=== PATIENT | female | born 1980 | race Caucasian/White ===

== ENCOUNTER 2020-03-29 12:10 | Inpatient (IN) | payer OTHER ==
[2020-03-29] MEDS: ELECTROLYTE-148 SOLN 1,000 ML IV SCH (13:50)
[2020-03-29] MEDS ORDERED: AMPICILLIN SODIUM 2 GM VIAL ONE (13:52)
[2020-03-29] MEDS ORDERED: AMPICILLIN - 2 GM in SODIUM CHLORIDE 100 ML IVPB ONE (14:00)
[2020-03-29] MEDS ORDERED: DINOPROSTONE 10 MG VAGINAL SUPPOSITORY VG ONE (14:45)
--- NOTE | 2020-03-29 15:04 | HP ---
Past Medical History - Primary Care Physician PCP:: James Rene - Admission Chief Complaint: Leakage of fluid per vagina History of Present Illness: 39 yo , MAIK 04/15/20, EGA 37 weeks 4 days, presented with leakage of fluid of 7 hours duration, but no bleeding per vagina. care with Dr Rene History Source: Patient Limitations to Obtaining History: No Limitations - Past Medical History ...: 4 ...Para: 2 ...Term: 2 ...: 0 ...Spon : 1 ...Induced : 0 ...Living Children: 2 ...EDC by Sono: 04/15/20 - Past Surgical History Hx Myomectomy: No Hx Transabdominal Cerclage: No - Smoking History Smoking history: Never smoked - Alcohol/Substance Use Hx Alcohol Use: No - Social History Usual Living Arrangement: Yes: With Significant Other Do you think of yourself as: Straight/Heterosexual History of Recent Travel: No Home Medications - Allergies Allergies/Adverse Reactions: Allergies Allergy/AdvReac Type Severity Reaction Status Date / Time No Known Allergies Allergy Verified 03/29/20 12:43 - Home Medications Home Medications: Ambulatory Orders Vitamins (Sjr) - 1 tab PO DAILY 03/29/20 Family Medical History Family History: Denies Review of Systems - Review of Systems Constitutional: reports: No Symptoms Eyes: reports: No Symptoms HENT: reports: No Symptoms Neck: reports: No Symptoms Cardiovascular: reports: No Symptoms Respiratory: reports: No Symptoms Gastrointestinal: reports: No Symptoms Genitourinary: reports: No Symptoms Breasts: reports: No Symptoms Reported Musculoskeletal: reports: No Symptoms Integumentary: reports: No Symptoms Neurological: reports: No Symptoms Endocrine: reports: No Symptoms Hematology/Lymphatic: reports: No Symptoms Psychiatric: reports: No Symptoms Physical Exam - Maternity Vital Signs: Vital Signs Temperature 97.8 F 03/29/20 14:00 Pulse Rate 898 H 03/29/20 14:00 Respiratory Rate 03/29/20 14:00 Blood Pressure 109/77 03/29/20 14:00 O2 Sat by Pulse Oximetry (%) Constitutional: Yes: Well Nourished Eyes: Yes: WNL HENT: Yes: WNL Neck: Yes: WNL Cardiovascular: Yes: WNL Lungs: Clear to auscultation - Abdominal Exam/OB Fundal Height: 39 Number of Fetuses: Single Presentation: Vertex Contractions: No Monitor Mode: External Heart Rate Location: [facility] Category: I Accelerations: Uniform Decelerations: None - Vaginal Exam/OB Vaginal Bleeding: No Speculum Exam: Yes Dilatation (cm): 1 Effacement (%): 0 Amniotic Membrane Status: Ruptured Nitrazine Test: Positive Amniotic Fluid: Yes: Clear Presentation: Vertex/Position - Physical Exam Musculoskeletal: Yes: WNL Extremities: Yes: WNL Edema: No Integumentary: Yes: WNL Deep Tendon Reflex Grade: Normal +2 ...Motor Strength: WNL Psychiatric: Yes: WNL Problem List - Problems (1) 39 weeks gestation of Code(s): Z3A.39 - 39 WEEKS GESTATION OF Assessment/Plan Full term gestation with rupture of membranes Admit L and D for management
[2020-03-29 15:20] LABS: BASO % 0.5 % (0-2.0); HEMATOCRIT 30.8 % (32.4-45.2); HEMOGLOBIN 10.1 GM/dL (10.7-15.3); LYMPH % 15.8 % (8-40); MCH 27.1 pg (25.7-33.7); MEAN CELL VOLUME 82.2 fl (80-96); MEAN PLT VOLUME 9.4 fl (7.5-11.1); MONO % 6.7 % (3.8-10.2); PLATELET COUNT 181 K/MM3 (134-434); RBC 3.75 M/mm3 (3.60-5.2); RDW 13.8 % (11.6-15.6); WHITE BLOOD COUNT 9.1 K/mm3 (4.0-10.0)
[2020-03-29 15:34] LABS: INR 1.03 (0.83-1.09); PROTHROMBIN TIME (PATIENT) 12.2 SEC (9.7-13.0)
[2020-03-29 15:36] LABS: ACTIVATED PTT 28.4 SECONDS (25.2-36.5)
--- NOTE | 2020-03-29 15:41 | PN ---
Progress Note (short form) - Note Progress Note: Full term gestation with ruptured membranes VSS, afebrile EFM - Baseline 140/min, moderate variability, accelerations, no decelerations Tocos - irritability Pelvic - 1cm/ long/ posterior/ Vertex Plan - Cervidil inserted for ripening Anticipate vaginal delivery Problem List - Problems (1) 39 weeks gestation of Code(s): Z3A.39 - 39 WEEKS GESTATION OF
[2020-03-29 15:43] LABS: BLOOD UREA NITROGEN 7.4 mg/dL (7-18); CALCIUM 8.1 mg/dL (8.5-10.1); CREATININE 0.5 mg/dL (0.55-1.3); POTASSIUM 3.6 mmol/L (3.5-5.1)
[2020-03-29 17:16] VITALS: BMI 26.2
[2020-03-29] MEDS ORDERED: AMPICILLIN SODIUM 1 GM VIAL ONE ×2 (17:44→22:10)
[2020-03-29] MEDS: AMPICILLIN - 1 GM in SODIUM CHLORIDE 100 ML IVPB SCH ×2 (18:00→22:00)
[2020-03-29] MEDS ORDERED: BUTORPHANOL TARTRATE 1 MG/ML VIAL ONE ×2 (20:12)
[2020-03-29] MEDS ORDERED: PROMETHAZINE HCL 25 MG/1 ML VIAL ONE (20:13)
--- NOTE | 2020-03-29 20:35 | PN ---
Progress Note, Labor Vaginal Exam #2 Labor Exam Date: 03/29/20 Labor Exam Time: 20:20 Heart Rate (range): 135 Dilatation: 3, pos Effacement (%): 50 Amniotic Membrane Status: Ruptured Presentation: Vertex/Position Station: -2 (Cervidil in. In pain. Stadol/Phenergan.)
[2020-03-29] MEDS ORDERED: BUTORPHANOL TARTRATE 1 MG/ML VIAL IVPB ONE (20:39)
[2020-03-29] MEDS ORDERED: PROMETHAZINE HCL 25 MG/1 ML VIAL IVPB ONE (20:39)
--- NOTE | 2020-03-29 22:44 | PN ---
Progress Note, Labor Vaginal Exam #3 Labor Exam Date: 03/29/20 Labor Exam Time: 22:40 Heart Rate (range): 135 Dilatation: 6 Effacement (%): 90 Amniotic Membrane Status: Ruptured Presentation: Vertex/Position Station: 0 (Declines epidural.)
[2020-03-29] MEDS ORDERED: OXYTOCIN 20 UNITS in 0.9% NS 20 UNIT/1,000 ML INFUS.BAG IV ONE (23:10)
[2020-03-29] MEDS ORDERED: LIDOCAINE HCL 1% PRESERVATIVE FREE - 30ML VIAL ONE (23:10)
[2020-03-29] MEDS ORDERED: OXYTOCIN 10 UNITS/ML VIAL ONE (23:43)
[2020-03-29] MEDS ORDERED: OXYTOCIN 10 UNITS/ML VIAL IV ONE (23:45)
--- NOTE | 2020-03-29 23:57 | PN ---
Progress Note, Labor Vaginal Exam #4 Labor Exam Date: 03/29/20 Labor Exam Time: 23:20 Heart Rate (range): 140 Dilatation: 10 Amniotic Membrane Status: Ruptured (BEBE. Pushing. Cervidil removed.) Presentation: Vertex/Position Station: +2
[2020-03-30] MEDS ORDERED: IBUPROFEN 600 MG TABLET (FP) PO PRN (00:01)
[2020-03-30] MEDS ORDERED: BISACODYL 10 MG SUPP.RECT RC PRN (00:01)
[2020-03-30] MEDS ORDERED: BENZOCAINE 28 GM HEMORRHOIDAL OINTMENT TP PRN (00:01)
[2020-03-30] MEDS ORDERED: METHYLERGONOVINE MALEATE 0.2 MG/1 ML AMP IM PRN (00:01)
[2020-03-30] MEDS ORDERED: ACETAMINOPHEN 325 MG TABLET (FP) PO PRN (00:01)
[2020-03-30] MEDS ORDERED: WITCH HAZEL 50% (TUCKS) 40 PAD/JAR PAD TP PRN (00:01)
[2020-03-30] MEDS ORDERED: BENZOCAINE 20% 57 GM BOTTLE TP PRN (00:01)
--- NOTE | 2020-03-30 00:01 | PN ---
Delivery - Delivery Vaginal Delivery: No Problems Episiotomy/Laceration: Midline EBL (cc): 300 Delivery, Single - Stages of Labor Date of Delivery: 03/29/20 Time of Delivery: 23:33 Placenta: Yes: Spontaneous, Normal Configuration - Condition of Infant Advanced Manufacturing Associate/Licensed Investment Sales Assistant Present: No Infant Gender: Male Position: Left, OA - 1 Minute Total Score: 9 5 Minutes Total Score: 9 - Feeding Plan Initial Plan: Exclusive throughout hospitalization Benefits of Exclusively reinforced: Yes Remarks - Remarks Remarks: NVSD. Epis repaired with local. All's well. Parents desire circumcision.
[2020-03-30] MEDS ORDERED: OXYTOCIN 20 UNITS in 0.9% NS 1000 ML INFUS.BAG IV ONE (00:02)
[2020-03-30] MEDS ORDERED: OXYTOCIN 20 UNITS in 0.9% NS 20 UNIT/1,000 ML INFUS.BAG IV SCH (00:15)
--- NOTE | 2020-03-30 07:03 | PN ---
Post Progress Note - Subjective Subjective: Feels great. Breast feeding. Type of Delivery: Vital Signs: Vital Signs Temperature 98 F 03/30/20 05:59 Pulse Rate 64 03/30/20 05:59 Respiratory Rate 18 03/30/20 05:59 Blood Pressure 94/57 L 03/30/20 05:59 O2 Sat by Pulse Oximetry (%) Breast Exam: Yes: Soft Uterus: Yes: Fundus Firm Abdomen/GI: Yes: Abdomen soft Lochia: Yes: Rubra Lochia, amount: Small Extremities: Yes: Calves non-tender Perineum: Yes: Episiotomy (healing nicely.) - Labs Labs: CBC WBC 9.1 K/mm3 (4.0-10.0) 03/29/20 15:00 RBC 3.75 M/mm3 (3.60-5.2) 03/29/20 15:00 Hgb 10.1 GM/dL (10.7-15.3) L 03/29/20 15:00 Hct 30.8 % (32.4-45.2) L 03/29/20 15:00 MCV 82.2 fl (80-96) 03/29/20 15:00 MCH 27.1 pg (25.7-33.7) 03/29/20 15:00 MCHC 33.0 g/dl (32.0-36.0) 03/29/20 15:00 RDW 13.8 % (11.6-15.6) 03/29/20 15:00 Plt Count 181 K/MM3 (134-434) 03/29/20 15:00 MPV 9.4 fl (7.5-11.1) 03/29/20 15:00 Absolute Neuts (auto) 6.9 K/mm3 (1.5-8.0) 03/29/20 15:00 Neutrophils % 76.0 % (42.8-82.8) 03/29/20 15:00 Lymphocytes % 15.8 % (8-40) 03/29/20 15:00 Monocytes % 6.7 % (3.8-10.2) 03/29/20 15:00 Eosinophils % 1.0 % (0-4.5) 03/29/20 15:00 Basophils % 0.5 % (0-2.0) 03/29/20 15:00 Nucleated RBC % 0 % (0-0) 03/29/20 15:00 Problem List - Problems (1) with 37 weeks completed gestation Code(s): Z3A.37 - 37 WEEKS GESTATION OF (2) normal course Code(s): Z39.2 - ENCOUNTER FOR ROUTINE FOLLOW-UP Assessment/Plan Pt. is doing very well. Happy. No complaints. Circumcision discussed. Explained procedure. Consent obtained.
[2020-03-30] MEDS: AMPICILLIN - 1 GM in SODIUM CHLORIDE 100 ML IVPB SCH (07:10)
--- NOTE | 2020-03-30 13:43 | PN ---
Progress Note (short form) - Note Progress Note: Doing very well. Happy. Circ. done. Discharge in AM. Instructions given. Problem List - Problems (1) with 37 weeks completed gestation Code(s): Z3A.37 - 37 WEEKS GESTATION OF (2) normal course Code(s): Z39.2 - ENCOUNTER FOR ROUTINE FOLLOW-UP
--- NOTE | 2020-03-30 13:46 | DS ---
Physical Exam-CARE TRANSITION MGR Vital Signs: Vital Signs Temperature 98.3 F 03/30/20 10:00 Pulse Rate 73 03/30/20 10:00 Respiratory Rate 20 03/30/20 10:00 Blood Pressure 98/59 L 03/30/20 10:00 O2 Sat by Pulse Oximetry (%) Constitutional: Yes: Well Nourished, No Distress, Calm Eyes: Yes: WNL, Conjunctiva Clear, EOM Intact HENT: Yes: WNL, Atraumatic, Normocephalic Neck: Yes: WNL, Supple, Trachea Midline Cardiovascular: Yes: WNL, Regular Rate and Rhythm Respiratory: Yes: WNL, Regular, CTA Bilaterally Gastrointestinal: Yes: WNL ...Rectal Exam: Yes: WNL Renal/: Yes: WNL Breast(s): Yes: WNL Musculoskeletal: Yes: WNL Extremities: Yes: WNL Integumentary: Yes: WNL Neurological: Yes: WNL, Alert, Oriented ...Motor Strength: WNL Psychiatric: Yes: WNL, Alert, Oriented Labs: CBC, BMP 03/29/20 15:00 03/29/20 15:00 Delivery - Delivery Vaginal Delivery: No Problems Type of Anesthesia: Local Episiotomy/Laceration: Midline EBL (cc): 300 Delivery, Single - Stages of Labor Date 1st Stage Initiatied: 03/29/20 Time 1st Stage Initiated: 19:00 Date 2nd Stage Initiated: 03/29/20 Time 2nd Stage Initiated: 23:20 Date of Delivery: 03/29/20 Time of Delivery: 23:33 Time Placenta Delivered: 23:37 Placenta: Yes: Spontaneous, Normal Configuration - Condition of Infant Bag Filler Machine Operator/Quartz Orientator Present: No Infant Gender: Male Weight: 6 lb 14 oz Position: Left, OA Total Hours ROM (Hrs/Mins): [id number] - 1 Minute Total Score: 9 5 Minutes Total Score: 9 - Feeding Plan Initial Plan: Exclusive throughout hospitalization Benefits of Exclusively reinforced: Yes - Additional Information: Circumcision done. Discharge Summary Problems reviewed: Yes Reason For Visit: LABOR ADMISSION Current Active Problems 39 weeks gestation of (Acute) normal course (Acute) with 37 weeks completed gestation (Acute) Procedures: Principal: [id number] Hospital Course: WNL Condition: Stable - Instructions Diet, Activity, Other Instructions: AMEENA. No sex. Nursing. F/U Dr. gamble 4-6 wks. Disposition: HOME - Home Medications Comprehensive Discharge Medication List: Ambulatory Orders Vitamins (Sjr) - 1 tab PO DAILY 03/29/20
[2020-03-31] MEDS: ELECTROLYTE-148 SOLN 1,000 ML IV SCH (00:23)
[2020-03-31 07:38] LABS: BASO % 0.6 % (0-2.0); EOS % 2.4 % (0-4.5); HEMATOCRIT 26.1 % (32.4-45.2); HEMOGLOBIN 8.5 GM/dL (10.7-15.3); LYMPH % 21.7 % (8-40); MCH 26.6 pg (25.7-33.7); MCHC 32.5 g/dl (32.0-36.0); MEAN CELL VOLUME 81.9 fl (80-96); MEAN PLT VOLUME 9.2 fl (7.5-11.1); MONO % 7.6 % (3.8-10.2); NEUT % 67.7 % (42.8-82.8); PLATELET COUNT 177 K/MM3 (134-434); RBC 3.19 M/mm3 (3.60-5.2); RDW 14.2 % (11.6-15.6); WHITE BLOOD COUNT 10.5 K/mm3 (4.0-10.0)
[2020-03-31 08:43] VITALS: BP 101/57; PULSE 67; TEMP 97.6
[2020-03-31] MEDS ORDERED: SENNOSIDES/DOCUSATE COMBO (SENNA PLUS) TABLET (UD) PO PRN (22:00)
[2020-04-01 09:06] LABS: POC NITRAZINE POS
== END 2020-03-31 12:50 | disposition home or self-care (01) | DRG 560 ==
LOC: JDEL 12:10 → JLDR 13:15 → J3W 03-30 02:12
PROVIDERS: ADMIT Obstetrics & Gynecology; ATTEND Obstetrics & Gynecology
PROC: 10E0XZZ Delivery of Products of Conception, External Approach (ICD-10-PCS; principal; 2020-03-29)
PROC: 0W8NXZZ Division of Female Perineum, External Approach (ICD-10-PCS; 2020-03-29)
PROC: 3E0P7VZ Introduction of Hormone into Female Reproductive, Via Natural or Artificial Opening (ICD-10-PCS; 2020-03-29)
DX: O80 Encounter for full-term uncomplicated delivery (principal); Z3A.37 37 weeks gestation of pregnancy; Z37.0 Single live birth
CPT/HCPCS: 36415; 59409; 80048; 83986-QW; 85025; 85610; 85730; 86780; 86850; 86900; 86901; 87389; U0003

== ENCOUNTER 2022-04-08 13:00 | Inpatient (IN) | payer OTHER ==
[2022-04-08] MEDS ORDERED: ELECTROLYTE-148 SOLN 1,000 ML IV SCH ×2 (14:00→19:30)
[2022-04-08] MEDS ORDERED: OXYTOCIN 30 UNITS in 0.9% NS 30 UNIT/500 ML INFUS.BAG IVPB SCH ×3 (14:00→18:15)
[2022-04-08 14:02] VITALS: BMI 25.3
[2022-04-08] MEDS ORDERED: OXYTOCIN 30 UNITS in 0.9% NS 30 UNIT/500 ML INFUS.BAG IVPB ONE (14:38)
[2022-04-08] MEDS: OXYTOCIN 30 UNITS in 0.9% NS 30 UNIT/500 ML INFUS.BAG IVPB SCH ×2 (14:40→18:02)
[2022-04-08 15:49] LABS: BASO % 0.3 % (0-2.0); EOS % 0.8 % (0-4.5); HEMATOCRIT 36.5 % (32.4-45.2); HEMOGLOBIN 11.9 GM/dL (10.7-15.3); LYMPH % 19.2 % (8-40); MCH 25.7 pg (25.7-33.7); MCHC 32.7 g/dl (32.0-36.0); MEAN CELL VOLUME 78.7 fl (80-96); MEAN PLT VOLUME 9.4 fl (7.5-11.1); MONO % 6.6 % (3.8-10.2); NEUT % 73.1 % (42.8-82.8); PLATELET COUNT 201 10^3/uL (134-434); RBC 4.64 M/mm3 (3.60-5.2); WHITE BLOOD COUNT 8.2 K/mm3 (4.0-10.0)
[2022-04-08 15:56] LABS: INR 1.01 (0.83-1.09); PROTHROMBIN TIME (PATIENT) 11.6 SEC (9.7-13.0)
[2022-04-08 16:13] LABS: BLOOD UREA NITROGEN 10.1 mg/dL (7-18); CALCIUM 8.4 mg/dL (8.5-10.1)
[2022-04-08 16:17] LABS: CREATININE 0.4 mg/dL (0.55-1.3)
[2022-04-08 17:08] LABS: HIV INTERPRETATION NEGATIVE (NEGATIVE)
[2022-04-08] MEDS ORDERED: BUTORPHANOL TARTRATE 1 MG/ML VIAL IVPB ONE (19:21)
[2022-04-08] MEDS ORDERED: PROMETHAZINE HCL 25 MG/1 ML VIAL IVPUSH ONE (19:21)
[2022-04-08] MEDS ORDERED: DEXTROSE 5%-LACTATED RINGERS 1,000 ML IV SCH (19:30)
[2022-04-08] MEDS ORDERED: BUTORPHANOL TARTRATE 2 MG/ML VIAL ONE (22:00)
[2022-04-08] MEDS ORDERED: PROMETHAZINE HCL 25 MG/1 ML VIAL ONE (22:01)
[2022-04-08] MEDS ORDERED: OXYTOCIN 20 UNITS in 0.9% NS 20 UNIT/1,000 ML INFUS.BAG IV ONE (23:00)
[2022-04-08] MEDS ORDERED: LIDOCAINE HCL 1% PRESERVATIVE FREE - 30ML VIAL ONE (23:14)
[2022-04-08] MEDS ORDERED: METHYLERGONOVINE MALEATE 0.2 MG/1 ML AMP IM PRN (23:31)
[2022-04-08] MEDS ORDERED: BISACODYL 10 MG SUPP.RECT RC PRN (23:31)
[2022-04-08] MEDS ORDERED: oxyCODONE HCL 5 MG TABLET PO PRN (23:31)
[2022-04-08] MEDS ORDERED: IBUPROFEN 600 MG TABLET (FP) PO PRN (23:31)
[2022-04-08] MEDS ORDERED: BENZOCAINE 28 GM HEMORRHOIDAL OINTMENT TP PRN (23:31)
[2022-04-08] MEDS ORDERED: ACETAMINOPHEN 325 MG TABLET (FP) PO PRN (23:31)
[2022-04-08] MEDS ORDERED: BENZOCAINE 20% 57 GM BOTTLE TP PRN (23:31)
[2022-04-08] MEDS ORDERED: WITCH HAZEL 50% (TUCKS) 40 PAD/JAR PAD TP PRN (23:31)
[2022-04-08] MEDS ORDERED: OXYTOCIN 20 UNITS in 0.9% NS 20 UNIT/1,000 ML INFUS.BAG IV SCH (23:45)
[2022-04-09 08:16] LABS: BASO % 0.2 % (0-2.0); EOS % 0.2 % (0-4.5); HEMATOCRIT 33.4 % (32.4-45.2); HEMOGLOBIN 10.8 GM/dL (10.7-15.3); LYMPH % 12.8 % (8-40); MCH 25.6 pg (25.7-33.7); MCHC 32.4 g/dl (32.0-36.0); MEAN CELL VOLUME 78.8 fl (80-96); MEAN PLT VOLUME 9.4 fl (7.5-11.1); NEUT % 80.8 % (42.8-82.8); PLATELET COUNT 177 10^3/uL (134-434); RBC 4.23 M/mm3 (3.60-5.2); RDW 13.9 % (11.6-15.6); WHITE BLOOD COUNT 12.1 K/mm3 (4.0-10.0)
[2022-04-09] MEDS: PRENATAL VITAMINS W/ FOLIC ACID TABLET (FP) PO SCH (09:37)
[2022-04-09] MEDS ORDERED: SENNOSIDES/DOCUSATE COMBO (SENNA PLUS) TABLET (UD) PO PRN (22:00)
[2022-04-10] MEDS: PRENATAL VITAMINS W/ FOLIC ACID TABLET (FP) PO SCH (09:31)
[2022-04-10 13:42] VITALS: BP 102/67; PULSE 66; TEMP 97.6
== END 2022-04-10 12:40 | disposition home or self-care (01) | DRG 560 ==
LOC: JLDR 13:00 → J3W 04-09 01:40
PROVIDERS: ADMIT Obstetrics & Gynecology; ATTEND Obstetrics & Gynecology
PROC: 10E0XZZ Delivery of Products of Conception, External Approach (ICD-10-PCS; principal; 2022-04-08)
PROC: 3E033VJ Introduction of Other Hormone into Peripheral Vein, Percutaneous Approach (ICD-10-PCS; 2022-04-08)
PROC: 10907ZC Drainage of Amniotic Fluid, Therapeutic from Products of Conception, Via Natural or Artificial Opening (ICD-10-PCS; 2022-04-08)
DX: O70.0 First degree perineal laceration during delivery (principal); Z3A.39 39 weeks gestation of pregnancy; Z37.0 Single live birth
CPT/HCPCS: 36415; 59409; 80048; 85025; 85610; 85730; 86780; 86850; 86900; 86901; 87389; C9803-CS; U0003; U0005